=== PATIENT | female | born 1975 | race Caucasian/White ===

== ENCOUNTER 2022-06-08 09:32 | Emergency (ER) | payer MEDICAID ==
[~2022-06-08] VITALS: Ht 154.9 cm; Wt 50.0 kg
[2022-06-08 14:21] LABS: APPEARANCE,URINE CLEAR (CLEAR); BILIRUBIN,URINE NEGATIVE (NEGATIVE); GLUCOSE, URINE (UA) NEGATIVE (NEGATIVE); KETONES,URINE NEGATIVE (NEGATIVE); LEUKOCYTE ESTERASE ,URINE NEGATIVE (NEGATIVE); NITRATE,URINE NEGATIVE (NEGATIVE); OCCULT BLOOD,URINE NEGATIVE (NEGATIVE); PROTEIN,URINE NEGATIVE (NEGATIVE); SPECIFIC GRAVITIY, URINE 1.017 (1.003-1.030); UROBILINOGEN,URINE <=1.0 mg/dL (<=1.0)
[2022-06-08] MEDS ORDERED: CYCL-448 PO (14:50)
[2022-06-08 15:14] VITALS: BP 112/70
== END 2022-06-08 15:15 | disposition home or self-care (01) ==
LOC: EMS 09:39
DX: S13.4XXA Sprain of ligaments of cervical spine, initial encounter (principal); M25.512 Pain in left shoulder; V43.62XA Car passenger injured in collision with other type car in traffic accident, initial encounter; Y93.89 Activity, other specified; Y92.89 Other specified places as the place of occurrence of the external cause; Y99.8 Other external cause status
CPT/HCPCS: 71046; 72125; 81003; 84703; 99285